=== PATIENT | male | born 1990 | race Two or more races ===

== ENCOUNTER 2019-09-18 02:40 | Inpatient (IN) | payer OTHER ==
[~2019-09-18] VITALS: Ht 180.3 cm; Wt 81.5 kg
[2019-09-18] MEDS ORDERED: PROMETHAZINE 25 MG/ML, 1ML ONE (03:15)
[2019-09-18] MEDS ORDERED: MORPHINE SULFATE 4 MG/ML, 1ML ONE ×2 (03:15→03:42)
[2019-09-18] MEDS ORDERED: ONDANSETRON 2MG/ML, 2ML ONE (03:15)
[2019-09-18] MEDS ORDERED: PANTOPRAZOLE 40 MG IV ONE (03:17)
[2019-09-18] MEDS: MORPHINE SULFATE 4 MG/ML, 1ML IVPush PRN ×2 (03:20→03:43)
[2019-09-18 03:24] LABS: MICROSCOPIC AUTO
[2019-09-18 03:25] LABS: CULTURE INDICATED? YES
[2019-09-18 03:26] LABS: BASOPHILS # (AUTO) 0.03 x10^3/uL (0-0.1); BASOPHILS % (AUTO) 0 % (0-1); EOSINOPHILS # (AUTO) 0.04 x10^3/uL (0-0.4); EOSINOPHILS % (AUTO) 1 % (1-7); LYMPHOCYTES # (AUTO) 1.87 x10^3/uL (1-3.4); LYMPHOCYTES % (AUTO) 23 % (22-44); MD NO; MEAN CORPUSCULAR HEMOGLOBIN 31.6 pg (27.5-34.5); MEAN CORPUSCULAR HGB CONC 33.1 g/dL (33.2-36.2); MEAN CORPUSCULAR VOLUME 95.5 fL (81-97); MEAN PLATELET VOLUME 8.3 fL (7.4-10.4); MONOCYTES # (AUTO) 0.55 x10^3/uL (0.2-0.8); MONOCYTES % (AUTO) 7 % (2-9); NEUTROPHILS # (AUTO) 5.65 x10^3/uL (1.8-6.8); NEUTROPHILS % (AUTO) 70 % (42-75); PLATELET COUNT 206 x10^3/uL (130-400); RED BLOOD COUNT 5.87 x10^6/uL (4.38-5.82); RED CELL DISTRIBUTION WIDTH 15.3 % (9.4-14.8)
[2019-09-18] MEDS ORDERED: PROMETHAZINE 25 MG/ML, 1ML IM ONE (03:30)
[2019-09-18] MEDS ORDERED: SODIUM CHLORIDE 0.9% 1,000ML IVBOLUS ONE (03:30)
[2019-09-18] MEDS ORDERED: SODIUM CHLORIDE FLUSH 10ML SYR IVF ONE (03:30)
[2019-09-18] MEDS ORDERED: PANTOPRAZOLE 40 MG IV IV ONE (03:30)
[2019-09-18] MEDS ORDERED: ONDANSETRON 2MG/ML, 2ML IVPush ONE (03:30)
[2019-09-18 03:34] LABS: ALANINE AMINOTRANSFERASE 51 U/L (12-78); ALBUMIN 4.2 g/dL (3.4-5.0); ANION GAP 5 mmol/L (5-15); CALCIUM 9.7 mg/dL (8.5-10.1); CHLORIDE 106 mmol/L (98-107); CREATININE 0.94 mg/dL (0.7-1.3)
[2019-09-18 03:36] LABS: ALKALINE PHOSPHATASE 72 U/L (45-117); BILIRUBIN,TOTAL 1.8 mg/dL (0.2-1.0); TOTAL PROTEIN 8.8 g/dL (6.4-8.2)
--- NOTE | 2019-09-18 03:36 | NUR ---
Patient presents to ER c/o LUQ abd pain. Patient states he has a hx of pancreatitis x7 months ago. Patient stopped drinking for awhile but started again and is now having pain which feels like it did in the past. Patient is in obvious discomfort. Respirations even and unlabored.
[2019-09-18] MEDS ORDERED: ONDANSETRON 2MG/ML, 2ML IVPush PRN (04:30)
[2019-09-18] MEDS: LACTATED RINGERS 1,000 ML IV SCH ×2 (05:07→09:15)
[2019-09-18 05:16] VITALS: BP 169/103
[2019-09-18] MEDS ORDERED: FOLIC ACID 1 MG TABLET PO ONE (05:30)
[2019-09-18] MEDS ORDERED: LORazepam 0.5MG TABLET PO PRN (05:30)
[2019-09-18] MEDS ORDERED: DIAZEPAM 5 MG TABLET PO SCH (05:30)
[2019-09-18] MEDS ORDERED: LORazepam 1MG TABLET PO PRN ×4 (05:30)
[2019-09-18] MEDS ORDERED: THIAMINE 200 MG in DEXTROSE 5% 50 ML IVPB ONE (05:30)
[2019-09-18] MEDS: NICOTINE 14MG/24 HR PATCH.TD24 TD SCH (05:30)
[2019-09-18] MEDS ORDERED: LORazepam 2 MG/ML, 1ML IV PRN ×5 (05:30)
[2019-09-18] MEDS ORDERED: ACETAMINOPHEN 325 MG TABLET PO PRN (05:30)
[2019-09-18] MEDS ORDERED: PROMETHAZINE 25 MG/ML, 1ML IM PRN (05:30)
[2019-09-18] MEDS ORDERED: THIAMINE 100MG TABLET PO ONE (05:30)
[2019-09-18] MEDS ORDERED: hydrALAzine 20 MG/ML, 1ML IVPush PRN (05:30)
[2019-09-18 06:18] VITALS: BP 155/87
[2019-09-18 06:41] VITALS: BP 169/97
[2019-09-18] MEDS: HEPARIN 5,000 UNITS/ML, 1ML SQ SCH ×2 (08:30→15:02)
[2019-09-18] MEDS: MAGNESIUM CHLORIDE 64 MG TABLET.DR PO SCH ×3 (09:00→22:26)
[2019-09-18] MEDS: morphine SULFATE 10 MG/ML, 1ML IVPush PRN ×3 (09:12→19:52)
[2019-09-18] MEDS: MULTIVITAMINS/MINERALS TABLET PO SCH (09:12)
[2019-09-18 09:22] LABS: AMPHETAMINE SCREEN, URINE Negative (Negative); BARBITURATE SCREEN, URINE Negative (Negative); BENZODIAZEPINE SCREEN, URINE Negative (Negative); CANNABINOID SCREEN, URINE Negative (Negative); COCAINE SCREEN, URINE Negative (Negative); METHADONE SCREEN, URINE Negative (Negative); OPIATE SCREEN, URINE Positive (Negative)
[2019-09-18] MEDS ORDERED: OXYcodone IR 5MG TABLET PO PRN (12:30)
[2019-09-18 12:58] VITALS: BP 146/101
[2019-09-18] MEDS: OXYcodone IR 5MG TABLET PO PRN (14:18)
[2019-09-18] MEDS ORDERED: TRAZODONE 50MG TABLET PO PRN (16:30)
[2019-09-18 18:39] VITALS: BP 149/96
[2019-09-19] MEDS: HEPARIN 5,000 UNITS/ML, 1ML SQ SCH ×3 (00:30→15:10)
[2019-09-19] MEDS: morphine SULFATE 10 MG/ML, 1ML IVPush PRN ×5 (01:02→21:24)
[2019-09-19 01:06] VITALS: BP 142/95
[2019-09-19] MEDS: LACTATED RINGERS 1,000 ML IV SCH ×2 (03:11→13:36)
[2019-09-19] MEDS: NICOTINE 14MG/24 HR PATCH.TD24 TD SCH (05:19)
[2019-09-19] MEDS ORDERED: DIAZEPAM 5 MG TABLET PO SCH (05:30)
[2019-09-19 05:32] LABS: BASOPHILS # (AUTO) 0.02 x10^3/uL (0-0.1); BASOPHILS % (AUTO) 0 % (0-1); EOSINOPHILS # (AUTO) 0.03 x10^3/uL (0-0.4); EOSINOPHILS % (AUTO) 0 % (1-7); LYMPHOCYTES # (AUTO) 1.44 x10^3/uL (1-3.4); LYMPHOCYTES % (AUTO) 16 % (22-44); MD NO; MEAN CORPUSCULAR HEMOGLOBIN 31.5 pg (27.5-34.5); MEAN CORPUSCULAR HGB CONC 32.9 g/dL (33.2-36.2); MEAN CORPUSCULAR VOLUME 95.8 fL (81-97); MEAN PLATELET VOLUME 8.3 fL (7.4-10.4); MONOCYTES # (AUTO) 0.94 x10^3/uL (0.2-0.8); MONOCYTES % (AUTO) 10 % (2-9); NEUTROPHILS # (AUTO) 6.85 x10^3/uL (1.8-6.8); NEUTROPHILS % (AUTO) 74 % (42-75); PLATELET COUNT 185 x10^3/uL (130-400); RED BLOOD COUNT 5.43 x10^6/uL (4.38-5.82); RED CELL DISTRIBUTION WIDTH 15.7 % (9.4-14.8)
[2019-09-19 05:43] LABS: ALANINE AMINOTRANSFERASE 28 U/L (12-78); ALBUMIN 3.3 g/dL (3.4-5.0); ANION GAP 6 mmol/L (5-15); CHLORIDE 104 mmol/L (98-107)
[2019-09-19 05:47] LABS: ALKALINE PHOSPHATASE 56 U/L (45-117); BILIRUBIN,TOTAL 2.1 mg/dL (0.2-1.0); CREATININE 0.73 mg/dL (0.7-1.3); TOTAL PROTEIN 7.6 g/dL (6.4-8.2)
[2019-09-19 06:58] VITALS: BP 126/86
[2019-09-19] MEDS: MAGNESIUM CHLORIDE 64 MG TABLET.DR PO SCH ×3 (07:03→21:09)
[2019-09-19] MEDS: OXYcodone IR 5MG TABLET PO PRN ×2 (07:04→16:14)
[2019-09-19] MEDS: MULTIVITAMINS/MINERALS TABLET PO SCH (07:04)
[2019-09-19] MEDS: THIAMINE 100MG TABLET PO SCH (07:04)
[2019-09-19] MEDS: NEUTRA PHOS K 250 MG TABLET PO SCH ×2 (08:13→21:09)
[2019-09-19] MEDS ORDERED: THIAMINE 100 MG in DEXTROSE 5% 50 ML IVPB SCH (09:00)
[2019-09-19] MEDS: CIPROFLOXACIN 500 MG TABLET PO SCH ×2 (11:20→21:09)
[2019-09-19 12:19] VITALS: BP 115/81
[2019-09-19 19:10] VITALS: BP 123/79
[2019-09-19] MEDS ORDERED: TRAZODONE 50MG TABLET PO PRN (21:00)
[2019-09-20 00:09] VITALS: BP 116/73
[2019-09-20] MEDS: LACTATED RINGERS 1,000 ML IV SCH (00:30)
[2019-09-20] MEDS: HEPARIN 5,000 UNITS/ML, 1ML SQ SCH ×3 (00:30→07:22)
[2019-09-20 06:19] VITALS: BP 108/72
[2019-09-20] MEDS: NICOTINE 14MG/24 HR PATCH.TD24 TD SCH (06:23)
[2019-09-20] MEDS: CIPROFLOXACIN 500 MG TABLET PO SCH (07:57)
[2019-09-20] MEDS: MULTIVITAMINS/MINERALS TABLET PO SCH (07:57)
[2019-09-20] MEDS: NEUTRA PHOS K 250 MG TABLET PO SCH (07:57)
[2019-09-20] MEDS: THIAMINE 100MG TABLET PO SCH (07:57)
[2019-09-20] MEDS: MAGNESIUM CHLORIDE 64 MG TABLET.DR PO SCH (07:57)
[2019-09-20] MEDS: OXYcodone IR 5MG TABLET PO PRN (08:11)
[2019-09-20] MEDS ORDERED: TRAZ50TA66 PO (11:41)
[2019-09-20] MEDS ORDERED: PHOS250T3 PO (11:41)
[2019-09-20] MEDS ORDERED: THIA100T67 PO (11:41)
[2019-09-20] MEDS ORDERED: CIPR500T87 PO (11:41)
[2019-09-20 12:43] VITALS: BP 126/76
== END 2019-09-20 13:07 | disposition home or self-care (01) | DRG 439 ==
LOC: ED 03:16 → EDIP 04:11 → 3N 04:46
PROVIDERS: ADMIT Family Medicine; ATTEND Internal Medicine
DX: K85.20 Alcohol induced acute pancreatitis without necrosis or infection (principal); F10.288 Alcohol dependence with other alcohol-induced disorder; E87.1 Hypo-osmolality and hyponatremia; R17 Unspecified jaundice; I10 Essential (primary) hypertension; F17.200 Nicotine dependence, unspecified, uncomplicated; F12.10 Cannabis abuse, uncomplicated; D75.1 Secondary polycythemia; E83.39 Other disorders of phosphorus metabolism
CPT/HCPCS: 36415; 76700; 80053; 80307; 81001; 83690; 83735; 84100; 84478; 85025; 86592; 87086; 87491; 87591; 87806; 96372; 96374; 96375; G0378; J2405; J2550; C9113; G0475; J2270; J7030; J7120